=== PATIENT | male | born 1995 | race Caucasian/White ===

== ENCOUNTER 2017-02-21 16:46 | Emergency (ER) | payer OTHER ==
[2017-02-21] MEDS: ACETAMINOPHEN 325 MG TAB PO (19:09)
[2017-02-21] MEDS: IBUPROFEN 600 MG TAB PO (19:10)
[2017-02-21] MEDS: ONDANSETRON (ODT) 4 MG TAB ODT (19:10)
== END 2017-02-21 20:15 | disposition home or self-care (01) ==
LOC: FTE 16:46
DX: R50.9 Fever, unspecified (principal); R09.81 Nasal congestion; R05 Cough
CPT/HCPCS: 71045; 99283-25

== ENCOUNTER 2018-04-15 13:51 | Emergency (ER) | payer SELFPAY, OTHER | END 2018-04-15 16:00 | disposition left against medical advice (07) | LOC: FTE 13:51 | DX: Z53.21 Procedure and treatment not carried out due to patient leaving prior to being seen by health care provider (principal) ==